=== PATIENT | female | born 1925 | race Caucasian/White ===

== ENCOUNTER 2016-12-15 16:26 | Inpatient (IN) | payer MEDICARE, BC ==
[~2016-12-15] VITALS: Ht 152.4 cm; Wt 59.3 kg
[~2016-12-15 16:26] MED LIST: 00186-0372-20 IH; ASTELIN NASAL S34 ML NS; DARVOCET-N-101 UDTAB PO; IMODIUM 2MG CAPS2 MG PO; LEVOTHYROXINE PO; MOTRIN 400400 MG/TAB PO; NASOCORT; PREMARIN0.625 MG PO; RT ADVAIR 128 DISKUS IH; SINGULAIR; SUDAFED30 MG PO; ULTRAM 50MG TAB50 MG PO; VIT D; VITAMIN D1000 IU PO; XARELTO20 MG PO
[2016-12-15] MEDS ORDERED: SYNTHROID0.075 MG/T PO (17:26)
[2016-12-15] MEDS ORDERED: THEO-24 20200 MG/CAP PO (17:26)
[2016-12-15] MEDS ORDERED: SINGULAIR 110 MG/TAB PO (17:26)
[2016-12-15] MEDS ORDERED: VENTOLIN0.09 MG IH (17:27)
[2016-12-15] MEDS ORDERED: 00186-0372-20 IH (17:27)
[2016-12-15] MEDS ORDERED: PREDNISONE10 MG PO (17:37)
[2016-12-15 18:00] LABS: BASO % 0.3 % (0.0-2.0); EOS # 0.2 (0.0-0.7); EOS % 1.7 % (0-4.0); GRAN # 6.8 (1.4-6.5); GRAN % 76.1 % (42.2-75.2); LYMPH # 1.3 (1.2-3.4); LYMPH % 14.3 % (20.0-51.0); MEAN CELL VOLUME 95 fl (80.0-100.0); MEAN CORPUSCULAR HGB CONC 33 g/dl (33.0-37.0); MEAN PLATELET VOLUME 10.2 fl (7.4-10.4); MONO # 0.6 (0.1-0.6); MONO % 6.7 % (1.7-9.3); PLATELET COUNT 142 K/mm3 (130-400); RED BLOOD COUNT 3.81 M/mm3 (4.10-5.30); REDCELL DISTRIBUTION WIDTH-CV 14.5 % (11.5-14.5)
[2016-12-15 18:06] LABS: HEMATOCRIT 36.1 % (37.0-47.0); HEMOGLOBIN 11.8 g/dl (12.5-16.0); MEAN CORPUSCULAR HEMOGLOBIN 31 pg (27.0-31.0)
[2016-12-15 18:12] LABS: ADJUSTED CALCIUM 9.2 mg/dL (8.4-10.2); ALANINE AMINOTRANSFERASE 38 U/L (9-52); ALBUMIN 3.8 gm/dL (3.5-5.0); ALKALINE PHOSPHATASE 52 U/L (50-136); ANION GAP 7 mmol/L (7-16); BILIRUBIN,TOTAL 0.4 mg/dL (0.0-1.0); BLOOD UREA NITROGEN 18 mg/dL (7-17); CARBON DIOXIDE 27 mmol/L (22-30); CHLORIDE 102 mmol/L (98-107); CREATININE, serum 0.69 mg/dL (0.52-1.25); GLUCOSE 80 mg/dL (74-106); POTASSIUM 3.8 mmol/L (3.4-5.0); SODIUM 136 mmol/L (137-145); TOTAL PROTEIN 6.6 gm/dL (6.4-8.2)
[2016-12-15 19:12] VITALS: BP 148/85; PULSE 89; TEMP 98
[2016-12-15 19:17] LABS: PH 7 (5-8); SQUAMOUS EPITHELIAL 0-2 /hpf; URINE APPEARANCE Clear; URINE BACTERIA None Seen /hpf; URINE BILIRUBIN Negative (NEGATIVE); URINE BLOOD Negative (NEGATIVE); URINE COLOR Straw; URINE GLUCOSE Negative (NEGATIVE); URINE KETONE Trace (NEGATIVE); URINE RBC 0-2 /hpf; URINE UROBILINOGEN Negative (NEGATIVE); URINE WBC 0-2 /hpf
[2016-12-15 20:00] VITALS: BP 155/56; PULSE 89; TEMP 98.7
[2016-12-15 22:00] VITALS: BP 155/56; PULSE 89; TEMP 98.7
[2016-12-16] VITALS (14 sets, daily range): BP systolic 126–175; BP diastolic 44–92; PULSE 75–98; TEMP 98–99
[2016-12-17 01:04] VITALS: BP 146/63; PULSE 97; TEMP 98.8
[2016-12-17 05:29] VITALS: BP 158/50; PULSE 94; TEMP 97.9
[2016-12-17 07:22] LABS: GRAN # 3.4 (1.4-6.5); GRAN % 72.8 % (42.2-75.2); LYMPH # 0.7 (1.2-3.4); LYMPH % 14.1 % (20.0-51.0); MEAN CELL VOLUME 95 fl (80.0-100.0); MEAN CORPUSCULAR HGB CONC 33 g/dl (33.0-37.0); MEAN PLATELET VOLUME 10.5 fl (7.4-10.4); MONO # 0.6 (0.1-0.6); MONO % 12.2 % (1.7-9.3); PLATELET COUNT 105 K/mm3 (130-400); RED BLOOD COUNT 2.58 M/mm3 (4.10-5.30); REDCELL DISTRIBUTION WIDTH-CV 14.4 % (11.5-14.5); WHITE BLOOD COUNT 4.7 K/mm3 (4.8-10.8)
[2016-12-17 07:28] LABS: HEMATOCRIT 24.6 % (37.0-47.0); HEMOGLOBIN 8.1 g/dl (12.5-16.0); MEAN CORPUSCULAR HEMOGLOBIN 31 pg (27.0-31.0)
[2016-12-17 07:44] LABS: CALCIUM 8.2 mg/dL (8.4-10.2); CREATININE, serum 0.65 mg/dL (0.52-1.25); POTASSIUM 3.5 mmol/L (3.4-5.0)
[2016-12-17 09:16] VITALS: BP 139/47; PULSE 52; TEMP 98.8
[2016-12-17 13:47] VITALS: BP 128/50; PULSE 90; TEMP 98.5
[2016-12-17 17:35] VITALS: BP 146/54; PULSE 97; TEMP 98.3
[2016-12-17 18:53] LABS: MEAN CELL VOLUME 97 fl (80.0-100.0); MEAN CORPUSCULAR HGB CONC 32 g/dl (33.0-37.0); MEAN PLATELET VOLUME 10.8 fl (7.4-10.4); PLATELET COUNT 102 K/mm3 (130-400); RED BLOOD COUNT 2.48 M/mm3 (4.10-5.30); REDCELL DISTRIBUTION WIDTH-CV 14.4 % (11.5-14.5); WHITE BLOOD COUNT 6.1 K/mm3 (4.8-10.8)
[2016-12-17 18:57] LABS: HEMOGLOBIN 7.7 g/dl (12.5-16.0); MEAN CORPUSCULAR HEMOGLOBIN 31 pg (27.0-31.0)
[2016-12-17 21:20] VITALS: BP 147/48; PULSE 100; TEMP 98.5
[2016-12-18] VITALS (16 sets, daily range): BP systolic 113–153; BP diastolic 35–85; PULSE 80–102; TEMP 97.9–99.1
[2016-12-18 06:45] LABS: BASO % 0.2 % (0.0-2.0); EOS # 0.1 (0.0-0.7); EOS % 1.6 % (0-4.0); GRAN # 3.1 (1.4-6.5); GRAN % 62.6 % (42.2-75.2); LYMPH # 1.2 (1.2-3.4); LYMPH % 24.4 % (20.0-51.0); MEAN CELL VOLUME 96 fl (80.0-100.0); MEAN CORPUSCULAR HGB CONC 33 g/dl (33.0-37.0); MEAN PLATELET VOLUME 10.6 fl (7.4-10.4); MONO # 0.5 (0.1-0.6); MONO % 10.6 % (1.7-9.3); PLATELET COUNT 99 K/mm3 (130-400); RED BLOOD COUNT 2.39 M/mm3 (4.10-5.30); REDCELL DISTRIBUTION WIDTH-CV 14.6 % (11.5-14.5); WHITE BLOOD COUNT 4.9 K/mm3 (4.8-10.8)
[2016-12-18 07:03] LABS: HEMOGLOBIN 7.5 g/dl (12.5-16.0); MEAN CORPUSCULAR HEMOGLOBIN 31 pg (27.0-31.0)
[2016-12-18 07:05] LABS: CALCIUM 8.4 mg/dL (8.4-10.2); CREATININE, serum 0.6 mg/dL (0.52-1.25); POTASSIUM 3.3 mmol/L (3.4-5.0)
[2016-12-19 01:10] VITALS: BP 180/74; PULSE 92; TEMP 98.8
[2016-12-19 05:28] VITALS: BP 155/67; PULSE 85; TEMP 98.8
[2016-12-19 07:29] LABS: BASO % 0.4 % (0.0-2.0); EOS # 0.1 (0.0-0.7); EOS % 2.5 % (0-4.0); GRAN # 3.5 (1.4-6.5); GRAN % 67.2 % (42.2-75.2); LYMPH % 18.8 % (20.0-51.0); MEAN CELL VOLUME 92 fl (80.0-100.0); MEAN CORPUSCULAR HGB CONC 33 g/dl (33.0-37.0); MEAN PLATELET VOLUME 10.2 fl (7.4-10.4); MONO # 0.5 (0.1-0.6); MONO % 10.3 % (1.7-9.3); PLATELET COUNT 112 K/mm3 (130-400); RED BLOOD COUNT 3.45 M/mm3 (4.10-5.30); REDCELL DISTRIBUTION WIDTH-CV 15.8 % (11.5-14.5); WHITE BLOOD COUNT 5.3 K/mm3 (4.8-10.8)
[2016-12-19 07:30] LABS: HEMATOCRIT 31.7 % (37.0-47.0); HEMOGLOBIN 10.5 g/dl (12.5-16.0); MEAN CORPUSCULAR HEMOGLOBIN 30 pg (27.0-31.0)
[2016-12-19 07:53] LABS: CREATININE, serum 0.57 mg/dL (0.52-1.25); POTASSIUM 3.9 mmol/L (3.4-5.0)
[2016-12-19] MEDS ORDERED: NORVASC 5MG5 MG/TAB PO (08:36)
[2016-12-19] MEDS ORDERED: XARELTO10 MG PO (08:36)
[2016-12-19] MEDS ORDERED: K-TAB20 PO (08:38)
[2016-12-19] MEDS ORDERED: NORCO 325 MG-51 TAB PO (08:39)
[2016-12-19 10:00] VITALS: BP 150/60; PULSE 93; TEMP 98.3
[2016-12-19 10:14] VITALS: BP 150/60; PULSE 93; TEMP 98.3
== END 2016-12-19 11:30 | DRG 494 ==
LOC: COL.ER 16:26 → SURG 17:41
PROVIDERS: Family Medicine; Internal Medicine; Orthopaedic Surgery
PROC: 0QSG06Z Reposition Right Tibia with Intramedullary Internal Fixation Device, Open Approach (ICD-10-PCS; principal; 2016-12-16 16:00)
DX: S82.131A Displaced fracture of medial condyle of right tibia, initial encounter for closed fracture (principal); S82.421A Displaced transverse fracture of shaft of right fibula, initial encounter for closed fracture; S42.021A Displaced fracture of shaft of right clavicle, initial encounter for closed fracture; W18.30XA Fall on same level, unspecified, initial encounter; J45.909 Unspecified asthma, uncomplicated; I10 Essential (primary) hypertension; D69.6 Thrombocytopenia, unspecified; D50.0 Iron deficiency anemia secondary to blood loss (chronic)
CPT/HCPCS: 99232-AI; 99233-AI; 99239; A4315; A9284; C1713; C1776; J0360; J0690; J1100; J1170; J1650; J2405; J2704; J3010; J7030; J7042; J7120; P9016